=== PATIENT | female | born 1980 | race African-American/Black ===

== ENCOUNTER 2018-10-10 04:32 | Observation (INO) | payer MEDICAID ==
[~2018-10-10] VITALS: Ht 165.1 cm; Wt 81.6 kg
[2018-10-10] MEDS ORDERED: DEXT 5%/LACTATED RINGERS 1,000 ML IV SCH (04:35)
[2018-10-10 06:03] LABS: CLARITY URINE CLOUDY (CLEAR); COLOR URINE YELLOW (YELLOW); KETONES URINE NEGATIVE (NEGATIVE); LEUKOCYTE ESTERASE URINE TRACE (NEGATIVE); NITRITE URINE NEGATIVE (NEGATIVE); OCCULT BLOOD URINE 1+ (NEGATIVE); PH URINE 6.5 (4.5-8.0); PROTEIN URINE NEGATIVE (NEGATIVE); SPECIFIC GRAVITY URINE 1.023 (1.005-1.030); UROBILINOGEN URINE 0.2 E.U./dL (0.2-1.0)
[2018-10-10 06:14] LABS: *BARBITURATES SCREEN URINE NEGATIVE (NEGATIVE)
[2018-10-10 06:15] LABS: *BENZODIAZEPINES SCREEN URINE NEGATIVE (NEGATIVE); *COCAINE SCREEN URINE NEGATIVE (NEGATIVE); METHADONE URINE SCREEN NEGATIVE (NEGATIVE); OPIATES URINE SCREEN NEGATIVE (NEGATIVE); PHENCYCLIDINE URINE SCREEN NEGATIVE (NEGATIVE)
[2018-10-10 06:19] LABS: *AMPHETAMINES SCREEN URINE PRESUMTIVE POSITIVE (NEGATIVE)
[2018-10-10 06:20] LABS: CANNABINOID URINE SCREEN PRESUMTIVE POSITIVE (NEGATIVE)
[2018-10-10] MEDS ORDERED: ONDANSETRON HCL 4MG/2ML INJ IV NR (06:23)
[2018-10-10] MEDS ORDERED: BUTORPHANOL TARTRATE 2 MG/ML VIAL IM PRN (06:45)
[2018-10-15 19:08] LABS: AMPHETAMINE CONF URINE Positive (.); CANNABINOID CONFIRMATION URINE Positive (.)
== END 2018-10-10 08:50 | disposition home or self-care (01) ==
LOC: 8 EST LDRP 04:32
PROVIDERS: ADMIT Specialist; ATTEND Specialist
DX: O36.8120 Decreased fetal movements, second trimester, not applicable or unspecified (principal); O62.9 Abnormality of forces of labor, unspecified; O09.522 Supervision of elderly multigravida, second trimester; Z3A.18 18 weeks gestation of pregnancy
CPT/HCPCS: 76805; 80305; 80307; 80349; 81003; 96372; 96374; 99281; G0378; J0595; J2405

== ENCOUNTER 2018-10-10 22:03 | Emergency (ER) | payer MEDICAID ==
[~2018-10-10] VITALS: Ht 160 cm; Wt 82.0 kg
[2018-10-10] MEDS ORDERED: MORPHINE SULFATE 4 MG/ML CPJ (NOT FOR IM USE) IV STA (23:01)
[2018-10-10] MEDS ORDERED: SODIUM CHLORIDE 0.9% 1,000 ML IV ONE (23:01)
[2018-10-10] MEDS ORDERED: ONDANSETRON HCL 4MG/2ML INJ IV STA (23:01)
[2018-10-10 23:12] LABS: BASOPHILS % 0.7 % (0.0-2.0); EOSINOPHILS % 0.9 % (0.0-5.0); HEMATOCRIT. 37.3 % (36.0-48.0); HEMOGLOBIN. 12.5 g/dL (12.0-16.0); LYMPHOCYTES % 18.1 % (20.0-50.0); MEAN CORPUSCULAR HEMOGLOBIN 30.6 pg (28.0-32.0); MEAN CORPUSCULAR VOLUME 91.4 fL (81.0-99.0); MEAN PLATELET VOLUME 9.4 fl (7.4-10.4); MONOCYTES % 4.8 % (2.0-8.0); NEUTROPHILS % 75.5 % (40.0-76.0); PLATELET 253 x1000/uL (130-400); RED BLOOD CELL COUNT 4.08 mill/uL (4.2-5.4); RED CELL DISTRIBUTION WIDTH 13.7 % (11.6-14.6)
[2018-10-10 23:20] LABS: CHLORIDE 108 mEq/L (98-107)
[2018-10-11] MEDS ORDERED: LORAZEPAM 2MG/ML CPJ IV ONE ×3 (00:30→03:30)
[2018-10-11] MEDS ORDERED: ONDANSETRON HCL 4MG/2ML INJ IV ONE (01:30)
[2018-10-11 02:16] LABS: ETHANOL BLOOD < 10 mg/dL
[2018-10-11] MEDS ORDERED: DIPHENHYDRAMINE 50MG/ML VIAL IV ONE (04:45)
[2018-10-11 06:50] LABS: KETONES URINE 3+ (NEGATIVE)
[2018-10-11 06:51] LABS: CLARITY URINE CLEAR (CLEAR); COLOR URINE YELLOW (YELLOW); SPECIFIC GRAVITY URINE 1.029 (1.005-1.030)
[2018-10-11 06:52] LABS: PROTEIN URINE 1+ (NEGATIVE)
[2018-10-11 06:53] LABS: LEUKOCYTE ESTERASE URINE NEGATIVE (NEGATIVE); NITRITE URINE NEGATIVE (NEGATIVE); OCCULT BLOOD URINE 2+ (NEGATIVE); UROBILINOGEN URINE 0.2 E.U./dL (0.2-1.0)
[2018-10-11 06:56] LABS: *BARBITURATES SCREEN URINE NEGATIVE (NEGATIVE); *BENZODIAZEPINES SCREEN URINE NEGATIVE (NEGATIVE); *COCAINE SCREEN URINE NEGATIVE (NEGATIVE); METHADONE URINE SCREEN NEGATIVE (NEGATIVE)
[2018-10-11 06:57] LABS: PHENCYCLIDINE URINE SCREEN NEGATIVE (NEGATIVE)
[2018-10-11 07:09] LABS: *AMPHETAMINES SCREEN URINE PRESUMTIVE POSITIVE (NEGATIVE); CANNABINOID URINE SCREEN PRESUMTIVE POSITIVE (NEGATIVE); OPIATES URINE SCREEN PRESUMTIVE POSITIVE (NEGATIVE)
[2018-10-11] MEDS ORDERED: DIPHENHYDRAMINE 50MG/ML VIAL IM ONE (08:30)
[2018-10-11] MEDS ORDERED: LORAZEPAM 2MG/ML CPJ IM ONE (10:15)
[2018-10-11] MEDS ORDERED: ONDANSETRON 4MG ODT PO ONE (12:30)
[2018-10-11] MEDS ORDERED: ONDANSETRON HCL 4MG TABLET PO ONE (15:45)
[2018-10-11 22:21] VITALS: BP 110/72
== END 2018-10-11 22:25 | disposition home or self-care (01) ==
LOC: EDSTATUS 22:03 → ER 22:03
DX: O26.892 Other specified pregnancy related conditions, second trimester (principal); Z3A.19 19 weeks gestation of pregnancy
CPT/HCPCS: 36415; 80053; 80305; 80307; 80329; 81003; 83690; 85025; 85610; 96361; 96372; 96374; 96375; 96376; 99283; G0482; J1200; J2060; J2270; J2405; J7030; J7040; Q0162; Z7610

== ENCOUNTER 2018-10-12 12:57 | Emergency (ER) | payer MEDICAID ==
[~2018-10-12] VITALS: Ht 167.6 cm; Wt 75.0 kg
[2018-10-12] MEDS ORDERED: ACETAMINOPHEN 325MG TABLET PO STA (13:33)
[2018-10-12] MEDS ORDERED: ONDANSETRON HCL 4MG/2ML INJ IV ONE (14:00)
[2018-10-12] MEDS ORDERED: MORPHINE SULFATE 4 MG/ML CPJ (NOT FOR IM USE) IV ONE (14:15)
[2018-10-12 14:44] LABS: BASOPHILS % 0.2 % (0.0-2.0); HEMATOCRIT. 38.7 % (36.0-48.0); LYMPHOCYTES % 21.3 % (20.0-50.0); MEAN CORPUSCULAR HEMOGLOBIN 30.6 pg (28.0-32.0); MEAN CORPUSCULAR VOLUME 91.2 fL (81.0-99.0); MEAN PLATELET VOLUME 9.3 fl (7.4-10.4); MONOCYTES % 7.5 % (2.0-8.0); PLATELET 253 x1000/uL (130-400); RED BLOOD CELL COUNT 4.25 mill/uL (4.2-5.4); RED CELL DISTRIBUTION WIDTH 14.1 % (11.6-14.6)
[2018-10-12 14:48] LABS: CHLORIDE 103 mEq/L (98-107)
[2018-10-12 14:49] LABS: PROTHROMBIN TIME 10.3 sec (9.1-11.1)
[2018-10-12 14:52] LABS: ETHANOL BLOOD < 10 mg/dL
[2018-10-12 15:12] LABS: B-HCG QUANTITATIVE 12995 mIU/mL (<3)
[2018-10-12 15:27] VITALS: BP 146/80
[2018-10-12] MEDS ORDERED: ONDANSETRON HCL 4MG TABLET PO ONE (15:45)
[2018-10-12] MEDS ORDERED: ACETAMINOPHEN 325MG TABLET PO ONE (15:45)
== END 2018-10-12 15:51 | disposition home or self-care (01) ==
LOC: ER 12:57
DX: O20.0 Threatened abortion (principal); R03.0 Elevated blood-pressure reading, without diagnosis of hypertension; Z3A.18 18 weeks gestation of pregnancy; O09.522 Supervision of elderly multigravida, second trimester
CPT/HCPCS: 36415; 76815; 80053; 83690; 84702; 85025; 85610; 86850; 86900; 86901; 96374; 96375; 99284; G0482; J2270; J2405; Q0162